=== PATIENT | female | born 1980 | race Hispanic/Latino ===

== ENCOUNTER 2019-01-10 09:57 | Emergency (ER) | payer SELFPAY ==
[2019-01-10 10:16] LABS: APPEARANCE,URINE CLEAR (CLEAR); BILIRUBIN,URINE NEGATIVE (NEGATIVE); COLOR,URINE YELLOW (YELLOW); GLUCOSE, URINE (UA) NEGATIVE (NEGATIVE); KETONES,URINE NEGATIVE (NEGATIVE); LEUKOCYTE ESTERASE ,URINE LARGE (NEGATIVE); NITRATE,URINE NEGATIVE (NEGATIVE); OCCULT BLOOD,URINE NEGATIVE (NEGATIVE); PROTEIN,URINE 30 mg/dL (NEGATIVE); UROBILINOGEN,URINE 0.2 mg/dL (0.2-1.0)
[2019-01-10 10:19] LABS: HCG,QUAL RESULT NEGATIVE (NEGATIVE)
[2019-01-10 10:24] LABS: BACTERIA,URINE Few /HPF (None Seen); MUCUS,URINE Few LPF (None Seen); SQUAMOUS EPITHELIAL CELL,UR Few /HPF (0-2); TRICHOMONAS,URINE Few /LPF (None Seen)
[2019-01-10] MEDS ORDERED: ONDANSETRON ODT 4 MG TAB ONE (10:30)
[2019-01-10] MEDS ORDERED: IBUPROFEN 600 MG TABLET ONE (10:30)
== END 2019-01-10 10:55 | disposition home or self-care (01) ==
LOC: EDH 09:57
DX: N39.0 Urinary tract infection, site not specified (principal); A59.9 Trichomoniasis, unspecified
CPT/HCPCS: 81001; 81025